=== PATIENT | female | born 1935 | race Native Hawaiian/Other Pacific Islander ===

== ENCOUNTER 2019-10-27 11:04 | Outpatient (CLI) | payer OTHER ==
[2019-10-27 11:35] LABS: POTASSIUM 2.5 mmol/L (3.6-5.2)
[2019-10-27 12:21] LABS: PLATELET COUNT 143 K/uL (152-353)
== END 2019-10-27 19:21 | disposition home or self-care (01) ==
LOC: LABW 11:04 → EDSTATUS 11:34 → LABW 19:21
PROVIDERS: Nurse Practitioner
DX: N18.3 Chronic kidney disease, stage 3 (moderate) (principal)
CPT/HCPCS: 36415; 80053; 82330; 83735; 84100; 85007; 85027